=== PATIENT | male | born 1975 | race Caucasian/White ===

== ENCOUNTER 2020-04-29 21:43 | Emergency (ER) | payer OTHER ==
[2020-04-29 22:26] VITALS: O2SAT 99
--- NOTE | 2020-04-29 22:56 | ERPHSYRPT ---
- History of Present Illness Time Seen by Provider: 04/29/20 22:10 Source: patient Patient Subjective Stated Complaint: pt states that his rt knee has been "popping" the past month, pt states that yesterday he was helping mother move items and was bending and lifting, pt states that when he went to work today he could tell that rt knee was swelling and getting tight Triage Nursing Assessment: pt ambulated into the er, pt is axo x3, hypertensive, swelling to rt knee, decreased ROM to rt knee, positive pedal pulses, good cap refill, c/o pain 06/21 to rt knee Physician History: Patient is a 44-year-old male presents to our ED with complaints of right knee pain and swelling. Patient has been experiencing a popping sensation in his right knee for the last couple days. Patient was helping his mother with work when his pain worsened. Patient went to work. After finishing his shift he notices that he was more swollen and painful. Pain described as an ache that is well localized. No radiation. Pain worse when he flexes his knee. No pain with weightbearing. Symptoms are mild to moderate in intensity. Patient declined pain medication. Patient is otherwise healthy. He voices no other complaints at this time. No trauma. No fever. No nausea or vomiting. No lower extremity numbness tingling or weakness. Patient voices no other complaints at this time. Method of Injury: unknown Occurred: yesterday Quality: constant Severity of Pain-Max: moderate Severity of Pain-Current: mild Lower Extremities Pain: knee: right Modifying Factors: Improves With: movement Associated Symptoms: none Allergies/Adverse Reactions: No Known Drug Allergies Allergy (Unverified 04/29/20 21:59) Home Medications: Alprazolam 1 mg [Xanax 1 mg] 1 mg PO DAILY 02/17/16 [History] Lisinopril 10 mg [Zestril 10 MG] 20 mg PO DAILY 02/17/16 [History] Montelukast Sodium [Singulair] 10 mg PO DAILY 02/17/16 [History] Oxycodone HCl/Acetaminophen [Percocet 5-325 mg Tablet] 1 each PO TID PRN PRN 03/28/16 [History] Hx Tetanus, Diphtheria Vaccination/Date Given: No Hx Influenza Vaccination/Date Given: No Hx Pneumococcal Vaccination/Date Given: No Travel Risk - International Travel Have you traveled outside of the country in past 3 weeks: No - Coronavirus Screening Close contact with a COVID-19 positive Pt in past 14-21 Days: No - Review of Systems Constitutional: No Symptoms, No Fever, No Chills Eyes: No Symptoms Ears, Nose, & Throat: No Symptoms Respiratory: No Symptoms, No Cough, No Dyspnea Cardiac: No Symptoms, No Chest Pain, No Edema, No Syncope Abdominal/Gastrointestinal: No Symptoms, No Abdominal Pain, No Nausea, No Vomiting, No Diarrhea Genitourinary Symptoms: No Symptoms, No Dysuria Musculoskeletal: No Symptoms, No Back Pain, No Neck Pain Skin: No Symptoms, No Rash Neurological: No Symptoms, No Dizziness, No Focal Weakness, No Sensory Changes Psychological: No Symptoms Endocrine: No Symptoms Hematologic/Lymphatic: No Symptoms Immunological/Allergic: No Symptoms All Other Systems: Reviewed and Negative - Past Medical History Pertinent Past Medical History: Yes Neurological History: No Pertinent History ENT History: No Pertinent History Cardiac History: Hypertension Respiratory History: Asthma, COPD Endocrine Medical History: No Pertinent History Musculoskeletal History: Arthritis GI Medical History: Diverticulitis History: No Pertinent History Psycho-Social History: Anxiety, Depression Male Reproductive Disorders: No Pertinent History - Past Surgical History Past Surgical History: No - Social History Smoking Status: Current every day smoker How long have you smoked: 28 years Exposure to second hand smoke: Yes Drug Use: none Patient Lives Alone: No - Nursing Vital Signs Nursing Vital Signs: Initial Vital Signs Temperature 98.4 F 04/29/20 22:00 Pulse Rate 88 04/29/20 22:00 Respiratory Rate 14 04/29/20 22:00 Blood Pressure 155/88 04/29/20 22:00 O2 Sat by Pulse Oximetry 99 04/29/20 22:00 Pain Scale Pain Intensity 8 - Physical Exam General Appearance: no apparent distress, alert Eyes, Ears, Nose, Throat Exam: moist mucous membranes Neck Exam: non-tender, supple Cardiovascular/Respiratory Exam: chest non-tender, normal breath sounds, regular rate/rhythm, no respiratory distress Gastrointestinal/Abdominal Exam: non-tender, guarding Back Exam: normal inspection, No vertebral tenderness Hips Exam: bilateral: non-tender, normal inspection, normal range of motion, no evidence of injury Legs Exam: bilateral leg: non-tender, normal inspection, normal range of motion, no evidence of injury Knees Exam: right knee: joint effusion, pain, left knee: non-tender, normal inspection, normal range of motion, no evidence of injury, bilateral knee: bone tenderness Ankle Exam: bilateral ankle: non-tender, normal inspection, normal range of motion, no evidence of injury Foot Exam: bilateral foot: non-tender, normal inspection, normal range of motion, no evidence of injury Neuro/Tendon Exam: normal sensation, normal motor functions Mental Status Exam: alert, oriented x 3, cooperative Skin Exam: normal color, warm, dry SpO2 Interpretation: normal SpO2: 99 O2 Delivery: Room Air - Course Nursing assessment & vital signs reviewed: Yes - Radiology Exams Knee X-ray Interpretation: Reviewed by me (Right knee effusion. No fractures or dislocations.) Ordered Tests: Active Orders 24 hr Category Date Time Status KNEE (1 OR 2 VIEW) Stat Exams 04/29/20 22:07 Taken - Progress Progress: improved Progress Note: 04/29/20 22:58 Patient declined pain medication. X-ray negative for fracture dislocation. Patient has a knee effusion. This may have to be drained. Patient referred to orthopedic clinic for further evaluation and treatment. Plan of care discussed with patient. He understands the plan of care and agrees to follow-up with orthopedic clinic as discussed. Patient issued bilateral axillary crutches for comfort. Counseled pt/family regarding: diagnosis, need for follow-up, rad results - Departure Departure Disposition: Home Clinical Impression: Knee effusion, right Condition: Stable Critical Care Time: Yes Referrals: PEDRO PECK [Primary Care Provider] - Additional Instructions: Discharge/Care Plan BORIS GOMEZ was seen on 04/29/20 in the Emergency Room. The patient was counseled regarding Diagnosis,Lab results, Imaging studies, need for follow up and when to return to the Emergency Room. Prescriptions given: Discharge Note I have spoken with the patient and/or caregivers. I have explained the patient's condition, diagnosis and treatment plan based on the information available to me at this time. I have answered the patient's and/or caregiver's questions and addressed any concerns. The patient and/or caregivers have as good understanding of the patient's diagnosis, condition and treatment plan as can be expected at this point. The vital signs have been stable. The patient's condition is stable and appropriate for discharge from the emergency department. The patient will pursue further outpatient evaluation with the primary care physician or other designated or consulting physician as outlined in the discharge instructions. The patient and/or caregivers are agreeable to this plan of care and follow-up instructions have been explained in detail. The patient and/or caregivers have received these instruction. The patient/and or caregivers are aware that any significant change in condition or worsening of symptoms should prompt an immediate return to this or the closest emergency department or call 911. Outpatient Orders: Ortho Referral Time Frame: 1 Day, Facility: [facility]. Hosp, Location: [facility]
[2020-04-29 23:17] VITALS: BP 143/88; PULSE 73
--- NOTE | 2020-04-30 08:59 | XRAY ---
Indication: Medial knee pain and swelling. No known injury. Comparison: None AP/crosstable lateral left knee demonstrates minimal medial joint space narrowing, mild medial soft tissue swelling, and small nonspecific effusion. No other bony, articular, or soft tissue abnormalities.
== END 2020-04-29 23:18 | disposition home or self-care (01) ==
LOC: ED 21:43
DX: M25.461 Effusion, right knee (principal); X50.0XXA Overexertion from strenuous movement or load, initial encounter; M25.561 Pain in right knee; I10 Essential (primary) hypertension; J44.9 Chronic obstructive pulmonary disease, unspecified; Z79.899 Other long term (current) drug therapy; Z79.891 Long term (current) use of opiate analgesic
CPT/HCPCS: 73560; 99283

== ENCOUNTER 2022-12-31 14:08 | Emergency (ER) | payer OTHER ==
[2022-12-31 14:36] VITALS: BP 160/77; PULSE 78; O2SAT 97
--- NOTE | 2022-12-31 14:50 | ERPHSYRPT ---
- History of Present Illness Source: patient Exam Limitations: no limitations Patient Subjective Stated Complaint: pt here for blood in urine Triage Nursing Assessment: pt alert, resp easy, skin w/d/p. no edema noted, Physician History: 47 yo WM w hematuria x 2 days. Pt has had nausea but denies vomiting/dysuria/flank pain/abdominal pain/frequency/anticoagulation use. He had ureterolithiasis 18yrs ago x2 w recovery x1 but has not had any since. Timing/Duration: other (2 days) Activites at Onset: rest Quality: other (No pain) Modifying Factors: Improves With: nothing Associated Symptoms: denies symptoms Prior abdominal problems: other (Ureterolithiasis) Allergies/Adverse Reactions: No Known Drug Allergies Allergy (Verified 12/31/22 14:22) Home Medications: ALPRAZolam 1 MG [Xanax 1 mg] 1 mg PO BID 02/17/16 [History] Lisinopril 10 mg [Zestril 10 MG] 20 mg PO DAILY 02/17/16 [History] Atorvastatin Calcium [Lipitor] 10 mg PO DAILY 09/06/22 [History] Cholecalciferol (Vitamin D3) [Vitamin D] 1,000 unit PO WEEKLY 09/06/22 [History] Sertraline HCl [Zoloft] 1 tab PO DAILY 09/06/22 [History] Hx Tetanus, Diphtheria Vaccination/Date Given: No Hx Influenza Vaccination/Date Given: Yes Hx Pneumococcal Vaccination/Date Given: No Immunizations Up to Date: Yes Travel Risk - International Travel Have you traveled outside of the country in past 3 weeks: No - Coronavirus Screening Are you exhibiting any of the following symptoms?: No Close contact with a COVID-19 positive Pt in past 14-21 Days: No - Vaccine Status Have you recieved a Covid-19 vaccination: Yes [employer]: Moderna - Vaccination Dates Date of 2cond Vaccination (if applicable): 2020 - Past Medical History Pertinent Past Medical History: Yes Neurological History: No Pertinent History ENT History: No Pertinent History Cardiac History: Hypertension Respiratory History: Asthma, COPD Endocrine Medical History: No Pertinent History Musculoskeletal History: Arthritis GI Medical History: Diverticulitis History: No Pertinent History Psycho-Social History: Anxiety, Depression Male Reproductive Disorders: No Pertinent History - Past Surgical History Past Surgical History: No - Social History Smoking Status: Current every day smoker How long have you smoked: 1 Exposure to second hand smoke: Yes Drug Use: none Patient Lives Alone: No - Review of Systems Constitutional: No Symptoms Eyes: No Symptoms Ears, Nose, & Throat: No Symptoms Respiratory: No Symptoms Cardiac: No Symptoms Abdominal/Gastrointestinal: No Symptoms Genitourinary Symptoms: No Symptoms, Hematuria Musculoskeletal: No Symptoms Skin: No Symptoms Neurological: No Symptoms Psychological: No Symptoms Endocrine: No Symptoms Hematologic/Lymphatic: No Symptoms Immunological/Allergic: No Symptoms - Nursing Vital Signs Nursing Vital Signs: Initial Vital Signs Temperature 97.3 F 12/31/22 14:33 Pulse Rate 78 12/31/22 14:33 Respiratory Rate 18 12/31/22 14:33 Blood Pressure 160/77 12/31/22 14:33 O2 Sat by Pulse Oximetry 97 12/31/22 14:33 Pain Scale Pain Intensity 0 Hypertensive - Physical Exam General Appearance: no apparent distress Eye Exam: PERRL/EOMI, eyes nml inspection Ears, Nose, Throat Exam: normal ENT inspection, TMs normal, pharynx normal, moist mucous membranes Neck Exam: normal inspection, non-tender, supple, full range of motion, No meningismus, No mass, No Brudzinski, No Kernig's Respiratory Exam: normal breath sounds, lungs clear, airway intact Cardiovascular Exam: regular rate/rhythm, normal heart sounds, normal peripheral pulses, capillary refill <2 sec, No murmur Gastrointestinal/Abdomen Exam: soft, normal bowel sounds, tenderness Back Exam: normal inspection, normal range of motion, No CVA tenderness, No vertebral tenderness Extremity Exam: normal inspection, normal range of motion Neurologic Exam: alert, oriented x 3, cooperative, ambulatory care II-XII nml as tested, normal mood/affect, nml cerebellar function, nml station & gait, sensation nml Skin Exam: normal color, warm, dry Lymphatic Exam: No adenopathy SpO2 Interpretation: normal SpO2: 97 O2 Delivery: Room Air - Course Nursing assessment & vital signs reviewed: Yes - CT Exams Abdomen/Pelvis CT Interpretation: Tele-radiologist Report (2mm proximal L ureteral stone/No hydronephrosis) Ordered Tests: Active Orders 24 hr Category Date Time Status ABDOMEN AND PELVIS W/0 CONTRAS [CT] Stat Exams 12/31/22 15:16 Taken CULTURE,URINE Stat Lab 12/31/22 15:57 Received UA W/RFX UR CULTURE Stat Lab 12/31/22 15:57 Completed Lab/Rad Data: Laboratory Results 12/31/22 Range/Units 15:57 Urine Color Yellow (Yellow) Urine Appearance Clear (Clear) Urine pH 8.5 A (4.6-8.0) Ur Specific Alvin 1.010 (1.005-1.030) Urine Protein Negative (Negative) Urine Glucose (UA) Negative (Negative) mg/dL Urine Ketones Negative (Negative) Urine Blood Large A (Negative) Urine Nitrite Negative (Negative) Urine Bilirubin Negative (Negative) Urine Urobilinogen 0.2 (0.2) mg/dL Ur Leukocyte Esterase Negative (Negative) U Hyaline Cast (Auto) NONE SEEN (0-2) /LPF Urine Microscopic RBC >100 A (0-5) /HPF Urine Microscopic WBC 0-2 (0-5) /HPF Ur Epithelial Cells None Seen (None Seen) /HPF Urine Bacteria None Seen (None Seen) /HPF Urine Culture Reflexed YES (NO) - Progress Progress Note: 12/31/22 16:50 Nursing note and vital signs reviewed No food or housing insecurities noted Pt refused pain meds during entire stay Labs/CT results reviewed and shared w pt Counseled pt/family regarding: lab results, diagnosis, need for follow-up, rad results - Departure Departure Disposition: Home Clinical Impression: Ureterolithiasis Condition: Stable Critical Care Time: No Referrals: PEDRO SPARKS [Primary Care Provider] - Follow up/PCP as directed Instructions: Blood in the Urine (Hematuria) in Adults, Kidney Stones (DC) Additional Instructions: Follow up with your family MD Strain all urine Motrin/Tylenol for pain Return to ER for increasing pain or temperature greater than 100.5
[2022-12-31 16:05] LABS: Appearance Clear (Clear); Bacteria None Seen /HPF (None Seen); Bilirubin Negative (Negative); Blood Large (Negative); Epithelial Cells None Seen /HPF (None Seen); Glucose, Urine Negative (Negative); Hyaline Casts NONE SEEN /LPF (0-2); Ketones Negative (Negative); Leukocyte Esterase Negative (Negative); Nitrite Negative (Negative); Ph 8.5 (4.6-8.0); Protein,Urine Dip Negative (Negative); RBC >100 /HPF (0-5); Urobilinogen 0.2 mg/dL (0.2); WBC 0-2 /HPF (0-5)
[2022-12-31 16:13] LABS: ADD URINE CULTURE? YES (NO)
--- NOTE | 2022-12-31 19:24 | XRAY ---
Indication: Blood in urine. Back pain. Multiple contiguous axial images obtained through the abdomen and pelvis without contrast using renal stone protocol. Comparison: None Lung bases clear. Heart not enlarged. There is a 1-2 mm proximal left ureter calculus, approximately L3 level. Minimal hydronephrosis but no perinephric fluid. Noncontrasted stomach and bowel loops appear nonobstructed with normal appendix. No free fluid/air. Remaining liver, gallbladder, pancreas, spleen, adrenal glands, kidneys, ureters, and bladder are unremarkable for noncontrast exam. Aorta mildly arteriosclerotic without aneurysm. Osseous structures intact with minimal/mild degenerative changes throughout the thoracolumbar spine. Impression: 1. 1-2 mm proximal left ureter calculus producing minimal obstructive uropathy. 2. 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 Comment: Preliminary interpretation made by C. No critical discrepancy.
== END 2022-12-31 16:34 | disposition home or self-care (01) ==
LOC: ED 14:08
DX: N20.1 Calculus of ureter (principal); Z87.442 Personal history of urinary calculi; R31.9 Hematuria, unspecified; R11.0 Nausea; I10 Essential (primary) hypertension; Z79.899 Other long term (current) drug therapy; Z72.0 Tobacco use
CPT/HCPCS: 74176; 81001; 87086; 99283

== ENCOUNTER 2023-01-08 07:38 | Emergency (ER) | payer OTHER ==
[2023-01-08] MEDS ORDERED: TORAdol 30 mg Injection IV ONE (08:09)
[2023-01-08] MEDS ORDERED: Sodium Chloride 0.9% 1000 ML 1,000 ML IV STA (08:10)
[2023-01-08] MEDS ORDERED: TORAdol 30 mg Injection ONE (08:16)
[2023-01-08] MEDS ORDERED: Sodium Chloride 0.9% 1000 ML 1,000 ML ONE (08:18)
--- NOTE | 2023-01-08 08:27 | ERPHSYRPT ---
- History of Present Illness Historian: patient Exam Limitations: no limitations Patient Subjective Stated Complaint: Pt states "I was here last sunday and told I have a small kidney stone and that I would pass it and it has not passed yet. I have more pain." Triage Nursing Assessment: PT presented alert and oriented X 3, skin pwd.Pt ambulates with an upright steady gait, able to speak in clear full sentences pt in no appaernt respiratory distress. pt resting comfortably on the bed. Physician History: 47 yo wm who was seen in the ER on 12/31/22 and diagnosed w a L 2mm proximal ureteral stone presents w continued L CVA/L flank pain. Pain is rated 8/10. He has dysuria/hematuria. Pt denies N/V/diarrhea/melena/hematochezia/fever. He has not followed up as an outpt. Timing/Duration: other (12/30/22) Activities at Onset: rest Quality: sharpness Abdominal Pain Onset Location: flank Severity of Pain-Max: severe Severity of Pain-Current: severe Modifying Factors: Improves With: nothing, urinating Associated Symptoms: back Previous symptoms: same symptoms as today Allergies/Adverse Reactions: No Known Drug Allergies Allergy (Verified 12/31/22 14:22) Home Medications: ALPRAZolam 1 MG [Xanax 1 mg] 1 mg PO BID 02/17/16 [History] Lisinopril 10 mg [Zestril 10 MG] 20 mg PO DAILY 02/17/16 [History] Atorvastatin Calcium [Lipitor] 10 mg PO DAILY 09/06/22 [History] Cholecalciferol (Vitamin D3) [Vitamin D] 1,000 unit PO WEEKLY 09/06/22 [History] Sertraline HCl [Zoloft] 1 tab PO DAILY 09/06/22 [History] Hx Tetanus, Diphtheria Vaccination/Date Given: No Hx Influenza Vaccination/Date Given: Yes Hx Pneumococcal Vaccination/Date Given: No Immunizations Up to Date: Yes Travel Risk - International Travel Have you traveled outside of the country in past 3 weeks: No - Coronavirus Screening Are you exhibiting any of the following symptoms?: No Close contact with a COVID-19 positive Pt in past 14-21 Days: No - Vaccine Status Have you recieved a Covid-19 vaccination: Yes [employer]: Moderna - Vaccination Dates Date of 2cond Vaccination (if applicable): 2020 - Review of Systems Constitutional: No Symptoms Eyes: No Symptoms Ears, Nose, & Throat: No Symptoms Respiratory: No Symptoms Cardiac: No Symptoms Abdominal/Gastrointestinal: No Symptoms Genitourinary Symptoms: No Symptoms, Dysuria, Hematuria Musculoskeletal: No Symptoms Skin: No Symptoms Neurological: No Symptoms Psychological: No Symptoms Endocrine: No Symptoms Hematologic/Lymphatic: No Symptoms Immunological/Allergic: No Symptoms - Past Medical History Pertinent Past Medical History: Yes Neurological History: No Pertinent History ENT History: No Pertinent History Cardiac History: Hypertension Respiratory History: Asthma, COPD Endocrine Medical History: No Pertinent History Musculoskeletal History: Arthritis GI Medical History: Diverticulitis History: No Pertinent History Psycho-Social History: Anxiety, Depression Male Reproductive Disorders: No Pertinent History - Past Surgical History Past Surgical History: No - Social History Smoking Status: Current every day smoker How long have you smoked: 1 Exposure to second hand smoke: Yes Drug Use: none Patient Lives Alone: No - Nursing Vital Signs Nursing Vital Signs: Initial Vital Signs Temperature 97.5 F 01/08/23 07:49 Pulse Rate 87 01/08/23 07:49 Respiratory Rate 20 01/08/23 07:49 Blood Pressure 145/82 01/08/23 07:49 O2 Sat by Pulse Oximetry 98 01/08/23 07:49 Pain Scale Pain Intensity 0 Hypertensive - Physical Exam General Appearance: no apparent distress Eye Exam: PERRL/EOMI, eyes nml inspection Ears, Nose, Throat Exam: normal ENT inspection, TMs normal, pharynx normal, moist mucous membranes Neck Exam: normal inspection, non-tender, supple, full range of motion, No meningismus, No mass, No Brudzinski, No Kernig's, No carotid bruit Respiratory Exam: airway intact, wheezing (Occ wheeze B), No respiratory distress Cardiovascular Exam: regular rate/rhythm, normal heart sounds, normal peripheral pulses, capillary refill <2 sec, No murmur Gastrointestinal/Abdomen Exam: soft, normal bowel sounds, No tenderness Back Exam: CVA tenderness (Mild L) Extremity Exam: normal inspection, normal range of motion Neurologic Exam: alert, oriented x 3, cooperative, manager of internal II-XII nml as tested, normal mood/affect, nml cerebellar function, nml station & gait, sensation nml Skin Exam: normal color, warm, dry, No rash Lymphatic Exam: No adenopathy SpO2 Interpretation: normal SpO2: 98 O2 Delivery: Room Air - Course Nursing assessment & vital signs reviewed: Yes - CT Exams Abdomen/Pelvis CT Interpretation: Discussed w/radiologist (2mm L UVJ calculus/Minimal hydronephrosis) Ordered Tests: Active Orders 24 hr Category Date Time Status ABDOMEN AND PELVIS W/0 CONTRAS [CT] Stat Exams 01/08/23 08:32 Completed CBC W DIFF Stat Lab 01/08/23 08:07 Completed CMP Stat Lab 01/08/23 08:07 Completed CULTURE,URINE Stat Lab 01/08/23 08:53 Received UA W/RFX UR CULTURE Stat Lab 01/08/23 08:53 Completed Medication Summary Discontinued Medications Generic Name Dose Route Start Last Admin Trade Name Freq PRN Reason Stop Dose Admin Ciprofloxacin 500 mg 01/08/23 09:49 01/08/23 09:52 Ciprofloxacin 500 Mg Tablet PO 01/08/23 09:50 500 mg NOW ONE Administration Ciprofloxacin Confirm 01/08/23 09:51 Ciprofloxacin 500 Mg Tablet Administered 01/08/23 09:52 Dose 500 mg .ROUTE .STK-MED ONE Sodium Chloride 1,000 mls @ 999 mls/hr 01/08/23 08:10 01/08/23 09:25 Sodium Chloride 0.9% 1000 Ml IV 01/08/23 09:10 Infused .Q1H1M STA Infusion Sodium Chloride Confirm 01/08/23 08:18 Sodium Chloride 0.9% 1000 Ml Administered 01/08/23 08:19 Dose 1,000 mls @ ud .ROUTE .STK-MED ONE Ketorolac Tromethamine 15 mg 01/08/23 08:09 01/08/23 08:19 Ketorolac Tromethamine 30 Mg/Ml Inj IV 01/08/23 08:10 15 mg STAT ONE Administration Ketorolac Tromethamine Confirm 01/08/23 08:16 Ketorolac Tromethamine 30 Mg/Ml Inj Administered 01/08/23 08:17 Dose 30 mg .ROUTE .STK-MED ONE Lab/Rad Data: Laboratory Result Diagrams 01/08/23 08:07 01/08/23 08:07 Laboratory Results 01/08/23 01/08/23 01/08/23 Range/Units 08:53 08:07 08:07 WBC 7.3 (4.0-10.5) x10^3/uL RBC 4.77 (4.1-5.6) x10^6/uL Hgb 15.1 (12.5-18.0) g/dL Hct 45.3 (42-50) % MCV 95.0 (78-100) fL MCH 31.7 (26-32) pg MCHC 33.3 (32-36) g/dL RDW 11.9 (11.5-14.0) % Plt Count 224 (150-450) x10^3/uL MPV 8.9 (7.5-11.0) fL Gran % 56.3 (36.0-66.0) % Immature Gran % (Auto) 0.3 (0.00-0.4) % Nucleat RBC Rel Count 0.0 (0.00-0.1) % Eos # (Auto) 0.19 (0-0.5) x10^3/uL Immature Gran # (Auto) 0.02 (0.00-0.03) x10^3u/L Absolute Lymphs (auto) 2.36 (1.0-4.6) x10^3/uL Absolute Monos (auto) 0.56 (0.0-1.3) x10^3/uL Absolute Nucleated RBC 0.00 (0.00-0.01) x10^3u/L Lymphocytes % 32.5 (24.0-44.0) % Monocytes % 7.7 (0.0-12.0) % Eosinophils % 2.6 (0.00-5.0) % Basophils % 0.6 (0.0-0.4) % Absolute Granulocytes 4.09 (1.4-6.9) x10^3/uL Basophils # 0.04 (0-0.4) x10^3/uL Sodium 139 (137-145) mmol/L Potassium 4.2 (3.5-5.1) mmol/L Chloride 101 (98-107) mmol/L Carbon Dioxide 28 (22-30) mmol/L Anion Gap 13.3 (5-15) MEQ/L BUN 3 L (9-20) mg/dL Creatinine 0.81 (0.66-1.25) mg/dL Estimated GFR > 60.0 ML/MIN Glucose 86 (74-106) mg/dL Calcium 8.8 (8.4-10.2) mg/dL Total Bilirubin 0.60 (0.2-1.3) mg/dL AST 35 (17-59) U/L ALT 24 (0-50) U/L Alkaline Phosphatase 99 (38-126) U/L Serum Total Protein 7.3 (6.3-8.2) g/dL Albumin 4.4 (3.5-5.0) g/dL Urine Color [place] A (Yellow) Urine Appearance Turbid A (Clear) Urine pH 5.5 (4.6-8.0) Ur Specific [place] 1.020 (1.005-1.030) Urine Protein 30 (Negative) Urine Glucose (UA) Negative (Negative) mg/dL Urine Ketones Negative (Negative) Urine Blood Large A (Negative) Urine Nitrite Negative (Negative) Urine Bilirubin Negative (Negative) Urine Urobilinogen 1.0 A (0.2) mg/dL Ur Leukocyte Esterase Small A (Negative) U Hyaline Cast (Auto) NONE SEEN (0-2) /LPF Urine Microscopic RBC >100 A (0-5) /HPF Urine Microscopic WBC 3-5 (0-5) /HPF Ur Epithelial Cells None Seen (None Seen) /HPF Urine Bacteria None Seen (None Seen) /HPF Urine Culture Reflexed YES (NO) - Progress Progress: improved Progress Note: 01/08/23 09:51 Nursing note and vital signs reviewed No housing or food insecurities noted 30mg IV Toradol/4mg IV Zofran/1L NS bolus w improvement Unable to reach Dr. Colón's office Dr. Cruz's office to call pt w appointment Pt pain free before discharge 500mg po Cipro before discharge 01/08/23 10:03 Counseled pt/family regarding: lab results, diagnosis, need for follow-up, rad results - Departure Departure Disposition: Home Clinical Impression: Ureterolithiasis, UTI (urinary tract infection) Condition: Stable Critical Care Time: No Referrals: PEDRO SPARKS [Primary Care Provider] - Follow up/PCP as directed Instructions: Kidney Stones (DC) Additional Instructions: Strain all urine Pain meds as needed Dr. Landis's office to call about appointment Return to ER for increasing pain or temperature greater than 100.5 Prescriptions: Hydrocodone/Acetaminophen [Hydrocodone-Acetamin 5-325 mg] 1 each PO Q4HPRN PRN #6 tablet MDD 4days PRN Reason: Pain Ciprofloxacin HCl [Cipro] 500 mg PO BID #10 tablet
[2023-01-08 08:32] LABS: Absolute Neutrophil Ct (ANC) 4.09 x10^3/uL (1.4-6.9); BASOPHIL % 0.6 % (0.0-0.4); Basophil (Absolute #) 0.04 x10^3/uL (0-0.4); Eosinophil % 2.6 % (0.00-5.0); Eosinophil (Absolute #) 0.19 x10^3/uL (0-0.5); Hematocrit 45.3 % (42-50); Hemoglobin 15.1 g/dL (12.5-18.0); IMMATURE GRAN # 0.02 x10^3u/L (0.00-0.03); IMMATURE GRAN % 0.3 % (0.00-0.4); Lymphocyte (Absolute #) 2.36 x10^3/uL (1.0-4.6); Lymphocytes % 32.5 % (24.0-44.0); Mean Corpuscular Hemoglobin 31.7 pg (26-32); Mean Corpuscular Hgb Concent. 33.3 g/dL (32-36); Mean Platelet Volume 8.9 fL (7.5-11.0); Monocyte (Absolute #) 0.56 x10^3/uL (0.0-1.3); Monocytes % 7.7 % (0.0-12.0); Neutrophil % 56.3 % (36.0-66.0); Platelet Count 224 x10^3/uL (150-450); Red Blood Count 4.77 x10^6/uL (4.1-5.6); Red Cell Distribution Width 11.9 % (11.5-14.0); White Blood Count 7.3 x10^3/uL (4.0-10.5)
[2023-01-08 08:47] LABS: ALBUMIN 4.4 g/dL (3.5-5.0); ALKALINE PHOSPHATASE 99 U/L (38-126); ANION GAP 13.3 MEQ/L (5-15); BLOOD UREA NITROGEN 3 mg/dL (9-20); CHLORIDE 101 mmol/L (98-107); Calcium 8.8 mg/dL (8.4-10.2); Carbon Dioxide 28 mmol/L (22-30); Creatinine 1 0.81 mg/dL (0.66-1.25); EST GLOMERULAR FILTRATION RATE > 60.0 ML/MIN; Glucose 86 mg/dL (74-106); Potassium 4.2 mmol/L (3.5-5.1); SGOT/AST 35 U/L (17-59); SGPT/ALT 24 U/L (0-50); SODIUM 139 mmol/L (137-145); Total Protein 7.3 g/dL (6.3-8.2)
--- NOTE | 2023-01-08 09:00 | XRAY ---
Indication: Left flank pain. Multiple contiguous axial images obtained through the abdomen and pelvis without contrast using renal stone protocol. Comparison: December 31, 2022 Lung bases demonstrates new right middle lobe subsegmental atelectasis. No infiltrate or effusion. Heart not enlarged. Previous 2 mm left ureteral calculus has propagated distally now seen at the level of the UVJ. Proximal left ureter again slightly prominent along with minimal hydronephrosis consistent with partial obstructive uropathy. Noncontrasted stomach and bowel loops remain nonobstructed again with normal appendix. No free fluid/air. Remaining liver, gallbladder, pancreas, spleen, adrenal glands, right kidney, right ureter, and bladder are unremarkable for noncontrast exam. Stable mild aortic calcifications. Impression: Antegrade movement previous 2 mm left calculus now seen at UVJ with continued minimal obstructive uropathy.
[2023-01-08 09:06] LABS: Appearance Turbid (Clear); Bacteria None Seen /HPF (None Seen); Bilirubin Negative (Negative); Blood Large (Negative); Epithelial Cells None Seen /HPF (None Seen); Glucose, Urine Negative (Negative); Hyaline Casts NONE SEEN /LPF (0-2); Ketones Negative (Negative); Leukocyte Esterase Small (Negative); Nitrite Negative (Negative); Ph 5.5 (4.6-8.0); Protein,Urine Dip 30 (Negative); RBC >100 /HPF (0-5)
[2023-01-08 09:07] LABS: ADD URINE CULTURE? YES (NO)
[2023-01-08] MEDS ORDERED: Cipro 500 MG PO ONE (09:49)
[2023-01-08] MEDS ORDERED: Cipro 500 MG ONE (09:51)
[2023-01-08 09:54] VITALS: BP 131/82; PULSE 84; O2SAT 98
== END 2023-01-08 10:39 | disposition home or self-care (01) ==
LOC: ED 07:38
DX: N13.2 Hydronephrosis with renal and ureteral calculous obstruction (principal); N39.0 Urinary tract infection, site not specified; R30.0 Dysuria; I10 Essential (primary) hypertension; Z79.891 Long term (current) use of opiate analgesic; Z79.899 Other long term (current) drug therapy; Z72.0 Tobacco use
CPT/HCPCS: 36000; 36415; 74176; 80053; 81001; 85025; 87086; 96360; 96374; 99284; J1885; A9270-GY